=== PATIENT | female | born 1970 | race Caucasian/White ===

== ENCOUNTER 2016-09-12 08:29 | Observation (INO) | payer BC ==
[~2016-09-12] VITALS: Ht 167.6 cm; Wt 66.9 kg
[2016-09-12] VITALS (9 sets, daily range): BP systolic 103–120; BP diastolic 65–82; PULSE 67–79; TEMP 36.8–37; O2SAT 96–100; Ht 167.6 cm; Wt 66.9 kg
[2016-09-12] MEDS ORDERED: SODIUM CHLORIDE 0.9% 1000ML 1,000 ML IV STA (08:39)
--- NOTE | 2016-09-12 09:08 | DIAGNOSTIC IMAGING REPORT ---
SINGLE VIEW CHEST CLINICAL HISTORY: Groin swelling. FINDINGS: An AP, portable, upright chest radiograph is obtained. No prior studies are available for comparison at the time of dictation. The examination is mildly degraded by portable technique and patient rotation. The cardiomediastinal silhouette is unremarkable. The lungs and pleural spaces are clear. No pneumothorax is seen. The bony thorax is grossly intact. IMPRESSION: No active disease in the chest. Electronically signed by: Fred Urrutia M.D. 09/12/2016 9:07 AM Dictated Date/Time: 09/12/2016 9:06 AM
[2016-09-12 09:09] LABS: PREG INTERNAL NEGATIVE QC NEG CLEAR BACKGROUND; PREG INTERNAL POSITIVE QC POS CONTROL LINE
--- NOTE | 2016-09-12 09:12 | EMERGENCY ROOM VISIT NOTE ---
History Report prepared by Dario: Mane Pace Under the Supervision of: Dr. Yann Guthrie M.D. First contact with patient: 08:32 Chief Complaint: OVERDOSE (ACCIDENTAL) Stated Complaint: OVERDOSE History of Present Illness The patient is a 47 year old female who presents to the Emergency Room with an acute overdose that occurred at an unknown time prior to arrival. The patient was found unresponsive and not breathing at a drug treatment facility. The patient was in treatment to be taken off of Suboxone. The patient is denying drug use, including Benzodiazepines. She also denies falls or injury. The patient was reportedly given 8 mg Narcan en route. History is limited secondary to altered mental status. Source of History: patient History Limited By: AMS Onset: unknown time prior to arrival Position: other (global) Quality: other (overdose) Timing: other (acute) Associated Symptoms: + LOC Review of Systems ROS is limited secondary to altered mental status. Past Medical & Surgical Medical Problems: (1) H/O drug abuse Family History Patient reports no known family medical history. Social History Drug Use: other (history of opiate use) Current/Historical Medications Scheduled Atomoxetine Hcl (Strattera), 60 MG PO QAM Bupropion Hcl (Wellbutrin Sr), 400 MG PO QAM Clonidine Hcl (Catapres), 0.1 MG PO BID Gabapentin (Neurontin), 300 MG PO TID Gabapentin (Neurontin), 600 MG PO HS Hydroxyzine Pamoate (Vistaril), 1-2 CAP PO BID Lamotrigine (Lamictal), 400 MG PO HS Levothyroxine Sodium (Synthroid), 50 MCG PO DAILY Liothyronine Sodium (Cytomel), 5 MCG PO DAILY Melatonin (Melatonin Maximum Strengt), 1 TAB PO HS Metformin Ext Rel (Glucophage Ext Rel), 2 TAB PO DAILY Multiple Vitamin (Multivitamin), 1 TAB PO DAILY Pravastatin Sodium (Pravachol), 20 MG PO DAILY Sulfamethoxazole-Trimethoprim (Bactrim Ds 800MG/160MG), 1 TAB PO BID Trazodone Hcl (Trazodone), 50 MG PO HS Scheduled PRN Acetaminophen (Tylenol 8 Hour Arthritis), 2 TABS PO Q4 PRN for Pain Alum & Mag Hydrox-Simethicone (Maalox Max Susp), 30 ML PO TID PRN for LOS Txzooeo-Wdefnnbbogomz-Btdqecdt (Excedrin Migraine), 2 TABS PO DAILY PRN for Headache Ibuprofen (Ibu-200), 1-3 TAB PO Q4H PRN for Pain Loperamide Hcl (Imodium), 4 MG PO UD PRN for ls Magnesium Hydroxide (Milk Of Magnesia), 30 ML PO DAILY PRN for LOS Naloxone HCl (Naloxone HCl), 0.4 MG IM UD PRN for SEDATION Naproxen Sodium (Naproxen Sodium), 1 TAB PO BID PRN for Pain Promethazine Hcl (Phenergan), 25 MG PO Q6H PRN for Nausea Allergies Coded Allergies: No Known Allergies (Unverified , 09/12/16) Physical Exam Vital Signs Date Time Temp Pulse Resp B/P Pulse Ox O2 Delivery O2 Flow Rate FiO2 09/12/16 11:20 68 18 112/76 99 Room Air 09/12/16 08:50 36.9 75 18 126/29 100 Room Air 09/12/16 08:48 100 Room Air Physical Exam GENERAL: Patient is somnolent appearing in minimal distress. Difficult to arouse. HEENT: No acute trauma, normocephalic atraumatic, mucous membranes moist, no nasal congestion, no scleral icterus. NECK: No stridor, no adenopathy, no meningismus, trachea is midline. LUNGS: No dyspnea. Clear to auscultation and equal bilaterally. No wheeze, no rhonchi. HEART: Regular rate and rhythm. No murmurs, rubs, gallops appreciated. ABDOMEN: Soft, nontender, bowel sounds positive, no masses appreciated, no peritonitis. BACK: No midline tenderness, no CVA tenderness EXTREMITIES: Blue/purple discoloration with mild swelling of the right arm, there is a tourniquet in place that was released slowly. Pulses are intact, capillary refill is now normal. NEUROLOGIC: Severely somnolent / obtunded, can weakly move all extremities. SKIN: No rash, no jaundice, no diaphoresis. Medical Decision & Procedures ER Provider Diagnostic Interpretation: X ray results are stated below per my interpretation and the radiologist's interpretation. Radiology results and stated below per my review and radiologist interpretation: CT SCAN OF THE BRAIN WITHOUT IV CONTRAST CLINICAL HISTORY: Unresponsive. Change in mental status. Overdose. COMPARISON STUDY: No priors. TECHNIQUE: Unenhanced axial CT scan of the brain is performed from the vertex to the skull base. Automated dose control exposure was utilized. CT DOSE: 614.27 mGy.cm FINDINGS: Brain parenchyma: The brain parenchyma is normal in appearance. There is no hemorrhage, mass effect, or evidence of acute territorial ischemia by CT criteria. López-white matter is preserved. No extra-axial fluid collection is seen. Ventricles, sulci, cisterns: Normal in configuration. Intracranial vasculature: The visualized intracranial vasculature at the skull base is normal in appearance. Calvarium: Unremarkable. Sinuses and mastoids: The visualized paranasal sinuses are clear. The mastoid air cells are well pneumatized. Orbits: The bony orbits are grossly intact. IMPRESSION: No acute intracranial abnormality. Electronically signed by: Fred Urrutia M.D. 09/12/2016 9:36 AM Dictated Date/Time: 09/12/2016 9:34 AM SINGLE VIEW CHEST CLINICAL HISTORY: Groin swelling. FINDINGS: An AP, portable, upright chest radiograph is obtained. No prior studies are available for comparison at the time of dictation. The examination is mildly degraded by portable technique and patient rotation. The cardiomediastinal silhouette is unremarkable. The lungs and pleural spaces are clear. No pneumothorax is seen. The bony thorax is grossly intact. IMPRESSION: No active disease in the chest. Electronically signed by: Fred Urrutia M.D. 09/12/2016 9:07 AM Dictated Date/Time: 09/12/2016 9:06 AM Laboratory Results Test 09/12/16 00:00 09/12/16 09:00 Urine Color YELLOW Urine Appearance CLEAR (CLEAR) Urine pH 7.5 (4.5-7.5) Urine Specific [place] 1.009 (1.000-1.030) Urine Protein NEG (NEG) Urine Glucose (UA) NEG (NEG) Urine Ketones NEG (NEG) Urine Occult Blood NEG (NEG) Urine Nitrite NEG (NEG) Urine Bilirubin NEG (NEG) Urine Urobilinogen NEG (NEG) Urine Leukocyte Esterase NEG (NEG) Urine WBC (Auto) 0 /hpf (0-5) Urine RBC (Auto) 0-4 /hpf (0-4) Urine Hyaline Casts (Auto) 0 /lpf (0-5) Urine Epithelial Cells (Auto) 5-10 /lpf (0-5) Urine Bacteria (Auto) NEG (NEG) Prothrombin Time 10.5 SECONDS (9.0-12.0) Prothromb Time International Ratio 1.0 (0.9-1.1) Activated Partial Thromboplast Time 27.3 SECONDS (21.0-31.0) Partial Thromboplastin Ratio 1.1 Urine Test NEG (NEG) Total Bilirubin 0.4 mg/dl (0.2-1) Aspartate Amino Transf (AST/SGOT) 18 U/L (15-37) Alanine Aminotransferase (ALT/SGPT) 29 U/L (12-78) Alkaline Phosphatase 89 U/L (45-117) Total Creatine Kinase 232 U/L (26-192) Troponin I < 0.015 ng/ml (0-0.045) Total Protein 7.2 gm/dl (6.4-8.2) Albumin 4.2 gm/dl (3.4-5.0) Globulin 3.0 gm/dl (2.5-4.0) Albumin/Globulin Ratio 1.4 (0.9-2) Salicylates Level 4.0 mg/dl (2.8-20) Urine Opiates Screen NEG (NEG) Urine Methadone, Qualitative NEG (NEG) Acetaminophen Level 2 ug/ml (10-30) Urine Barbiturates NEG (NEG) Urine Phencyclidine (PCP) Level NEG (NEG) Ur Amphetamine/Methamphetamine NEG (NEG) MDMA (Ecstasy) Screen POS (NEG) Urine Benzodiazepines Screen NEG (NEG) Urine Cocaine Metabolite NEG (NEG) Urine Marijuana (THC) NEG (NEG) Ethyl Alcohol mg/dL < 3.0 mg/dl (0-3) Laboratory results as reviewed by me. Medications Administered Medications (Trade) Dose Ordered Sig/Liana Route Start Time Stop Time Status Last Admin Dose Admin Sodium Chloride 1,000 ml @ 999 mls/hr Q1H1M STAT IV 09/12/16 08:39 09/12/16 09:39 DC 09/12/16 09:18 999 MLS/HR Sodium Chloride (Nss 1000ml) 1,000 ml @ 75 mls/hr [id number] IV 09/12/16 10:29 10/12/16 10:28 09/12/16 16:33 75 MLS/HR ECG Indication: altered mental status Rate (beats per minute): 70 Rhythm: normal sinus Findings: no acute ischemic change, no ectopy ED Course 0823: The patient was evaluated in room A11b. A complete history and physical exam was performed. 0839: NSS 1000 ml @ 999 mls/hr. 0900: The patient is more awake and interactive. She denies any significant arm pain other than some soreness. She still denies overdosing on any medications, and states that she is feeling sleepy because she has not been sleeping. 0944: The patient is somnolent but awakens. 1000: The patient wakes and answers questions but falls back to sleep. She denies drug overdose. She refuses to go back to [facility]. She states that this morning she was feeling fine then she doesn't remember anything afterwards. 1002: Discussed the case with Luis Miguel Jang Hospitalist. The patient will be evaluated. Medical Decision Differential: Suicide Attempt, Mood Disorder, Poisoning, Medication OD, Narcotic OD, Tylenol OD, Salicylated OD, Prolonged QTc, Metabolic/Electrolyte imbalance, Trauma, Rhabdo, Infectious, amongst other pathologies entertained. 46 yr old female arrives for evaluation of altered mental status. Patient current resident at local drug rehab facility. Arrives essentially obtunded but once tourniquet removed from right arm she awoke and was interactive. Did start falling back to sleep shortly there-after. She adamantly denies having taken any narcotics. She denies headache, neck pain, nor other symptoms. States she does not remember what happened. She has no evidence of sepsis/ meningitis by examination. Right arm initially blue swollen with tourniquet on but with slowly removing this she had improvement in color. After a few minutes it is identical to other arm. No significant pain in arm. No evidence of vascular injury at this time with intact n/v. She is stable, breathing comfortably and in no distress. Given AMS, and fact she is getting somnolent again I do not feel it would be appropriate to discharge at this time. Hospitalist consulted for further evaluation/treatment. Consults Time Called: 1000 Consulting Physician: Luis Miguel Jang Hospitalist. Returned Call: 1002 The patient will be evaluated. Impression Primary Impression: Altered mental status Scribe Attestation The scribe's documentation has been prepared under my direction and personally reviewed by me in its entirety. I confirm that the note above accurately reflects all work, treatment, procedures, and medical decision making performed by me. Departure Information Dispostion Being Evaluated By Hospitalist Patient Instructions My [facility] Health Problem Qualifiers Primary Impression: Altered mental status Altered mental status type: transient alteration of awareness Qualified Codes : R40.4 - Transient alteration of awareness
[2016-09-12 09:27] LABS: BASO % 0.4 %; BASO ABS # 0.03 K/uL (0-0.2); COMPLETE YES; HEMATOCRIT 38.4 % (37-47); IG% 0.4 %; LYMPH % 6.8 %; LYMPH ABS # 0.56 K/uL (1.2-3.4); MEAN CELL VOLUME 88.5 fL (80-100); MEAN CORPUSCULAR HGB CONC 33.9 g/dl (32-36); MONO % 4.9 %; NEUT % 86.5 %; PLATELET COUNT 260 K/uL (130-400); RED BLOOD COUNT 4.34 M/uL (4.2-5.4); WHITE BLOOD COUNT 8.18 K/uL (4.8-10.8)
[2016-09-12 09:34] LABS: BENZODIAZEPINE, URINE NEG (NEG); COCAINE,URINE NEG (NEG); PHENCYCLIDINE, URINE NEG (NEG)
--- NOTE | 2016-09-12 09:37 | DIAGNOSTIC IMAGING REPORT ---
CT SCAN OF THE BRAIN WITHOUT IV CONTRAST CLINICAL HISTORY: Unresponsive. Change in mental status. Overdose. COMPARISON STUDY: No priors. TECHNIQUE: Unenhanced axial CT scan of the brain is performed from the vertex to the skull base. Automated dose control exposure was utilized. CT DOSE: 614.27 mGy.cm FINDINGS: Brain parenchyma: The brain parenchyma is normal in appearance. There is no hemorrhage, mass effect, or evidence of acute territorial ischemia by CT criteria. López-white matter is preserved. No extra-axial fluid collection is seen. Ventricles, sulci, cisterns: Normal in configuration. Intracranial vasculature: The visualized intracranial vasculature at the skull base is normal in appearance. Calvarium: Unremarkable. Sinuses and mastoids: The visualized paranasal sinuses are clear. The mastoid air cells are well pneumatized. Orbits: The bony orbits are grossly intact. IMPRESSION: No acute intracranial abnormality. Electronically signed by: Fred Urrutia M.D. 09/12/2016 9:36 AM Dictated Date/Time: 09/12/2016 9:34 AM
[2016-09-12 09:38] LABS: ALT/SGPT 29 U/L (12-78); AST/SGOT 18 U/L (15-37); BLOOD UREA NITROGEN 4 mg/dl (7-18); BUN/CREATININE RATIO 5.6 (10-20); CALCIUM 8.8 mg/dl (8.5-10.1); CARBON DIOXIDE 28 mmol/L (21-32); CHLORIDE 106 mmol/L (98-107); CREATININE 0.71 mg/dl (0.60-1.20); GLUCOSE 99 mg/dl (70-99); POTASSIUM 3.7 mmol/L (3.5-5.1); SODIUM 140 mmol/L (136-145)
[2016-09-12 09:49] LABS: ALB/GLOB RATIO 1.4 (0.9-2); ALKALINE PHOSPHATASE 89 U/L (45-117); THYROID STIMULATING HORMONE 0.725 uIu/ml (0.300-4.500)
--- NOTE | 2016-09-12 10:18 | History and Physical ---
History & Physical Date & Time of Service: September 12, 2016 at 10:18 Chief Complaint: Overdose Primary Care Physician: No Doctor, Assigned History of Present Illness Source: patient Patient is a 46 Yr old female with PMH of DM II, Hypothyroidism, HLP, anxiety, depression and other problems presents from [facility] for evaluation of altered mental status. As per medical staff patient was thought to have acute drug overdose that occurred at unknown period. Patient was apparently found to be unresponsive and was not breathing at the drug treatment facility and she received Narcan en route to the ED. Patient reports she voluntarily got admitted at [facility] for Suboxone and Vicodin detox. She denies taking any excess prescription medications or drug use. She reports she is currently off Suboxone. CT head, CXR showed no acute process. Currently she is AAOX3, hemodynamically stable and states she experienced an episode of dizziness which is describes as room spinning associated with nausea which currently resolved. Currently reports being very tired and has generalized weakness and is very hungry. Also reports 2 day history of loose watery non bloody diarrhea, chills , nausea and pressure like sensation on micturition which is believes is secondary to UTI and was started on Bactrim yesterday at [facility]. Denies any history of chest pain, SOB, cough, abd pain, change in vision, fever, hematuria but states having a mild headache. Offers no other relevant history Past Medical/Surgical History Past Medical History: DM II, Hypothyroidism, HLP, anxiety, depression Past Surgical History: , Tonsillectomy Family History Patient reports no known family medical history. Father and Mother: DM II, HTN, heart disease Social History Smoking Status: Current Some Day Smoker Alcohol Use: none Drug Use: other (history of opiate use) Allergies Coded Allergies: No Known Allergies (Unverified , 09/12/16) Home Medications Scheduled Atomoxetine Hcl (Strattera), 60 MG PO QAM Bupropion Hcl (Wellbutrin Sr), 400 MG PO QAM Clonidine Hcl (Catapres), 0.1 MG PO BID Gabapentin (Neurontin), 300 MG PO TID Gabapentin (Neurontin), 600 MG PO HS Hydroxyzine Pamoate (Vistaril), 1-2 CAP PO BID Lamotrigine (Lamictal), 400 MG PO HS Levothyroxine Sodium (Synthroid), 50 MCG PO DAILY Liothyronine Sodium (Cytomel), 5 MCG PO DAILY Melatonin (Melatonin Maximum Strengt), 1 TAB PO HS Metformin Ext Rel (Glucophage Ext Rel), 2 TAB PO DAILY Multiple Vitamin (Multivitamin), 1 TAB PO DAILY Pravastatin Sodium (Pravachol), 20 MG PO DAILY Sulfamethoxazole-Trimethoprim (Bactrim Ds 800MG/160MG), 1 TAB PO BID Trazodone Hcl (Trazodone), 50 MG PO HS Scheduled PRN Acetaminophen (Tylenol 8 Hour Arthritis), 2 TABS PO Q4 PRN for Pain Alum & Mag Hydrox-Simethicone (Maalox Max Susp), 30 ML PO TID PRN for LOS Vvrobha-Lunnerbasdjuv-Shjkihoc (Excedrin Migraine), 2 TABS PO DAILY PRN for Headache Ibuprofen (Ibu-200), 1-3 TAB PO Q4H PRN for Pain Loperamide Hcl (Imodium), 4 MG PO UD PRN for ls Magnesium Hydroxide (Milk Of Magnesia), 30 ML PO DAILY PRN for LOS Naloxone HCl (Naloxone HCl), 0.4 MG IM UD PRN for SEDATION Naproxen Sodium (Naproxen Sodium), 1 TAB PO BID PRN for Pain Promethazine Hcl (Phenergan), 25 MG PO Q6H PRN for Nausea Review of Systems See HPI for pertinent positives & negatives. A total of 10 systems reviewed and were otherwise negative. Physical Exam Vital Signs Date Time Temp Pulse Resp B/P Pulse Ox O2 Delivery O2 Flow Rate FiO2 09/12/16 08:50 36.9 75 18 126/29 100 Room Air 09/12/16 08:48 100 Room Air General Appearance: WD/WN, no apparent distress Head: normocephalic, atraumatic Eyes: normal inspection, PERRL, EOMI, sclerae normal ENT: normal ENT inspection, hearing grossly normal Neck: supple, trachea midline Respiratory/Chest: chest non-tender, lungs clear, normal breath sounds, no respiratory distress, no accessory muscle use Cardiovascular: regular rate, rhythm, no edema, no murmur Abdomen/GI: normal bowel sounds, non tender, soft, + pertinent finding (Bowel sounds present ) Back: normal inspection Extremities/Musculoskelatal: normal inspection, no pedal edema Neurologic/Psych: seconds inspector II-XII nml as tested, no motor/sensory deficits, alert, oriented x 3, + pertinent finding (Anxious) Skin: normal color, warm/dry Diagnostics Laboratory Results Results Past 24 Hours Test 09/12/16 09:00 Range/Units White Blood Count 8.18 4.8-10.8 K/uL Red Blood Count 4.34 4.2-5.4 M/uL Hemoglobin 13.0 12.0-16.0 g/dL Hematocrit 38.4 37-47 % Mean Corpuscular Volume 88.5 80-100 fL Mean Corpuscular Hemoglobin 30.0 25-34 pg Mean Corpuscular Hemoglobin Concent 33.9 32-36 g/dl Platelet Count 260 130-400 K/uL Neutrophils (%) (Auto) 86.5 % Lymphocytes (%) (Auto) 6.8 % Monocytes (%) (Auto) 4.9 % Eosinophils (%) (Auto) 1.0 % Basophils (%) (Auto) 0.4 % Neutrophils # (Auto) 7.08 1.4-6.5 K/uL Lymphocytes # (Auto) 0.56 1.2-3.4 K/uL Monocytes # (Auto) 0.40 0.11-0.59 K/uL Eosinophils # (Auto) 0.08 0-0.5 K/uL Basophils # (Auto) 0.03 0-0.2 K/uL Immature Granulocyte % (Auto) 0.4 % Immature Granulocyte # (Auto) 0.03 0.00-0.02 K/uL Urine Test NEG NEG Sodium Level 140 136-145 mmol/L Potassium Level 3.7 3.5-5.1 mmol/L Chloride Level 106 98-107 mmol/L Carbon Dioxide Level 28 21-32 mmol/L Anion Gap 6.0 3-11 mmol/L Blood Urea Nitrogen 4 7-18 mg/dl Creatinine 0.71 0.60-1.20 mg/dl Est Creatinine Clear Calc Drug Dose 90.7 ml/min Estimated GFR () 116.7 Estimated GFR (Non- 100.7 BUN/Creatinine Ratio 5.6 10-20 Random Glucose 99 70-99 mg/dl Calcium Level 8.8 8.5-10.1 mg/dl Total Bilirubin 0.4 0.2-1 mg/dl Aspartate Amino Transf (AST/SGOT) 18 15-37 U/L Alanine Aminotransferase (ALT/SGPT) 29 12-78 U/L Alkaline Phosphatase 89 45-117 U/L Total Creatine Kinase 232 26-192 U/L Troponin I < 0.015 0-0.045 ng/ml Total Protein 7.2 6.4-8.2 gm/dl Albumin 4.2 3.4-5.0 gm/dl Globulin 3.0 2.5-4.0 gm/dl Albumin/Globulin Ratio 1.4 0.9-2 Thyroid Stimulating Hormone (TSH) 0.725 0.300-4.500 uIu/ml Salicylates Level 4.0 2.8-20 mg/dl Urine Opiates Screen NEG NEG Urine Methadone, Qualitative NEG NEG Acetaminophen Level 2 10-30 ug/ml Urine Barbiturates NEG NEG Urine Phencyclidine (PCP) Level NEG NEG Ur Amphetamine/Methamphetamine NEG NEG MDMA (Ecstasy) Screen POS NEG Urine Benzodiazepines Screen NEG NEG Urine Cocaine Metabolite NEG NEG Urine Marijuana (THC) NEG NEG Ethyl Alcohol mg/dL < 3.0 0-3 mg/dl Diagnostic Radiology CXR: No active disease in the chest. CT head: No acute intracranial abnormality. Carotid USD: 1. There is no sonographic evidence of hemodynamically significant stenosis in the right or left carotid arterial system. 2. Antegrade flow is shown in the vertebral arteries. EKG EKG: NSR, Rate 70, QTC:462 Impression Assessment and Plan Altered Mental Status: Unclear etiology DD: ?drug overdose or Withdrawal/Polypharmacy/Infection CT head/Carotid doppler/CXR: No acute process No focal deficits on exam Drug screen:Negative Neuro Checks Will consider MRI brain and further work up if necessary Hold sedative meds Check EEG/ECHO Diarrhea: Check stool studies IV Fluids ? UTI: Treated with Bactrim [address] [facility] Will start IV Ceftriaxone empirically Follow blood/Urine cultures DM II: hold oral diabetic meds Check A1c ISS, Accu checks, Diabetic diet H/O drug abuse: Was on Suboxone which was discontinued at [facility] Patient doesn't want to be discharged back to [facility] Drug screen is negative business services analyst consulted for discharge planning Hypothyroidism: TSH:0.7 Repeat TSH, Free T4 Continue Synthroid, Cytomel HLP: Continue Pravastatin Anxiety/Depression: Hold all home meds for now Consult Psychiatry Plan to resume home meds when appropriate Tobacco Use: Nicotine patch Dental Specialist to quit smoking DVT px: Lovenox SQ Disposition: To be determined business services analyst consulted
[2016-09-12] MEDS ORDERED: ONDANSETRON INJ 2 MG/ML 2 ML VIAL IV PRN (10:30)
[2016-09-12] MEDS ORDERED: ACETAMINOPHEN 325 MG TAB PO PRN (10:30)
[2016-09-12] MEDS ORDERED: PHARMACY GLYCEMIC MGMT CONSULT PRN (11:16)
[2016-09-12] MEDS ORDERED: MULTTAB58 PO (11:18)
[2016-09-12] MEDS ORDERED: GABA-113 PO (11:18)
[2016-09-12] MEDS ORDERED: STR40 PO (11:18)
[2016-09-12] MEDS ORDERED: TRAZ50TA35 PO (11:18)
[2016-09-12] MEDS ORDERED: NRN/600 PO (11:18)
[2016-09-12] MEDS ORDERED: LAMO200T PO (11:18)
[2016-09-12] MEDS ORDERED: LIOT5TAB PO (11:18)
[2016-09-12] MEDS ORDERED: ASPI-390 PO (11:18)
[2016-09-12] MEDS ORDERED: NAPR-1007 PO (11:18)
[2016-09-12] MEDS ORDERED: BUPR200T2 PO (11:18)
[2016-09-12] MEDS ORDERED: PRAV20TA2 PO (11:18)
[2016-09-12] MEDS ORDERED: METFTAB PO (11:18)
[2016-09-12] MEDS ORDERED: SULF800T23 PO (11:19)
[2016-09-12] MEDS ORDERED: MELATAB2 PO (11:19)
[2016-09-12] MEDS ORDERED: HYDR50CA2 PO (11:19)
[2016-09-12] MEDS ORDERED: PROM25TA9 PO (11:19)
[2016-09-12] MEDS ORDERED: IBUP200T80 PO (11:19)
[2016-09-12] MEDS ORDERED: IMD2X PO (11:19)
[2016-09-12] MEDS ORDERED: ACET650T97 PO (11:19)
[2016-09-12] MEDS ORDERED: MOML PO (11:19)
[2016-09-12] MEDS ORDERED: LEVO50TA PO (11:19)
[2016-09-12] MEDS ORDERED: CTP/1 PO (11:19)
[2016-09-12] MEDS ORDERED: NLXI4X IM (11:19)
[2016-09-12] MEDS ORDERED: ALUMSUS2 PO (11:19)
[2016-09-12] MEDS ORDERED: ATOM60CA PO (11:27)
[2016-09-12] MEDS ORDERED: GLUCOSE 40% GEL 15 GM TUBE PO PRN (11:30)
[2016-09-12] MEDS ORDERED: GLUCAGON FOR INJ 1 MG VIAL SQ PRN (11:30)
[2016-09-12] MEDS ORDERED: GLUCOSE 10 TABS/TUBE PO PRN (11:30)
[2016-09-12] MEDS ORDERED: DEXTROSE 50% 50 ML SYR IV PRN (11:30)
[2016-09-12] MEDS ORDERED: ALUMINUM/MAGNESIUM/SIMETH (MAALOX MAX) 30 ML UDC PO PRN (11:30)
[2016-09-12 12:02] LABS: PARTIAL THROMBOPLASTIN RATIO 1.1; PROTHROMBIN TIME (PATIENT) 10.5 SECONDS (9.0-12.0)
[2016-09-12] MEDS ORDERED: NICOTINE 21 MG/24 HR TDSY ONE (12:42)
--- NOTE | 2016-09-12 13:57 | DIAGNOSTIC IMAGING REPORT ---
ULTRASOUND OF THE CAROTID ARTERIES CLINICAL HISTORY: Syncope. Overdose. COMPARISON STUDY: No priors. TECHNIQUE: Real-time, grayscale, and color Doppler sonography of the carotid arteries is performed. Images are reviewed in the transverse and longitudinal planes. FINDINGS: Blood pressures were not assessed due to limb restrictions. The carotid arteries are patent bilaterally and demonstrate antegrade flow. There is no significant atherosclerotic plaque identified. Normal doppler arterial waveforms are seen throughout. Velocity measurements are listed below. Common carotid peak systolic velocity (cm/sec): RIGHT: 68 LEFT: 94 ICA proximal peak systolic velocity (cm/sec): RIGHT: 55 LEFT: 110 ICA mid peak systolic velocity (cm/sec): RIGHT: 82 LEFT: 105 ICA distal peak systolic velocity (cm/sec): RIGHT: 84 LEFT: 110 ICA/CC peak systolic ratio: RIGHT: 1.2 LEFT: 1.2 Antegrade flow was shown in the vertebral arteries. The external carotid arteries are patent. IMPRESSION: 1. There is no sonographic evidence of hemodynamically significant stenosis in the right or left carotid arterial system. 2. Antegrade flow is shown in the vertebral arteries. Electronically signed by: Fred Urrutia M.D. 09/12/2016 1:56 PM Dictated Date/Time: 09/12/2016 1:54 PM
[2016-09-12] MEDS ORDERED: IV FLUIDS COMPLETED PRN (14:00)
--- NOTE | 2016-09-12 14:03 | Pharmacy Progress Note ---
Glycemic Control Intl Consult Date of Service September 12, 2016. Scope Glycemic Pharmacist consulted by Dr Prater on 09/12/16 for glycemic control and to write orders per [facility] inpatient glycemic control protocol Objective Weight (Kilograms): 67.000 Accuchecks BSG (last 24hrs): Test 09/12/16 09:00 Random Glucose 99 mg/dl (70-99) Recent Pertinent Medications Outpatient Anti-diabetic Regimen: * Metformin XR 1,000mg PO daily The patient is currently receiving: * Basal insulin: Lantus -- units every -- hours * Correctional Insulin: Novolog Correction per scale ACHS Goal Range: Low 120 mg/dL - High 160 mg/dL Correction Factor: 65 mg/dL/unit * Prandial insulin: Per carb ratio of 1 unit per 22 grams CHO consumed * Oral Agents: On hold for admission Risk Factors for Insulin Resistance: * Diet Assessment & Plan ASSESSMENT: * 46yo T2DM female with unknown degree of outpatient control. No recent A1c listed * A1c pending for tomorrow with AM labs * Pt is maintained on oral antidiabetic agent as an outpatient {metformin} * Oral agents are not recommended for inpatient use d/t drug interactions, changing PO intake, and difficulty titrating for acute hyper/hypoglycemia. ADA recommends re-initiating outpatient oral agents 1-2 days prior to discharge if/ when appropriate if they were held on admission. * Will hold metformin admission and utilize SQ basal bolus insulin regimen which is the recommended regimen for inpatient glycemic control. * Will initiate weight based insulin dosing for insulin bree patient and titrate based on BSG trends. * Start basal insulin only if BSG > 180mg/dl * ADA & AACE recommend a goal blood sugar range 140-180 mg/dl for the majority of critically ill & non-critically ill patients. However, more stringent targets may be selected in individual cases. Will utilize more stringent goal of 110-140mg/dl based on patient age & comorbidities. PLAN FOR INPATIENT GLYCEMIC CONTROL: * Hold outpatient oral diabetes medications * Basal insulin * Most likely not needed at this time based on random glucose of 99mg/dl & pt only on one oral agent as an outpatient * Will start for persistent hyperglycemia while metformin on hold (BSG > 180) * Bolus insulin * NovoLog per scale ACHS or Q6hrs while NPO * Goal Range: Low 110 mg/dL - High 140 mg/dL * Correction Factor: 35 mg/dL/unit * Nutritional / Prandial insulin per carb ratio of 1 unit per 12 grams CHO consumed * D/W provider, pharmacy to sign off of glycemic consult if adequate glycemic control with above orders x 24hrs * Please note that the plan above was derived based on current level of insulin resistance and hospital stress. These recommendations are appropriate for inpatient admission only. Plan of care upon discharge will need to be reassessed to avoid potential outpatient hypo/hyperglycemia. Thank you.
[2016-09-12] MEDS ORDERED: CEFTRIAXONE SOD INJ 1 GM in DEXTROSE 5% ADD-VANTAGE 50ML 50 ML IV SCH (16:00)
[2016-09-12] MEDS: INSULIN ASPART 100 UNITS/ML 3 ML PEN SC SCH ×2 (16:15→21:00)
[2016-09-12] MEDS: SODIUM CHLORIDE 0.9% 1000ML 1,000 ML IV SCH ×2 (16:33→23:49)
[2016-09-12] MEDS ORDERED: ENOXAPARIN 40 MG/0.4 ML SYR SC SCH (18:00)
[2016-09-12 18:57] LABS: URINE APPEARANCE CLEAR (CLEAR); URINE BILIRUBIN NEG (NEG); URINE COLOR YELLOW; URINE NITRITE NEG (NEG); URINE PH 7.5 (4.5-7.5); URINE SPECIFIC GRAVITY 1.009 (1.000-1.030); UROBILINOGEN NEG (NEG); ZZUR CULT IF INDIC CLEAN CATCH NO
[2016-09-12 19:00] LABS: MANUAL MICROSCOPIC REQUIRED? NO; REVIEW REQ? NO
[2016-09-12] MEDS ORDERED: TRAZODONE HCL 50 MG TAB PO SCH (21:30)
[2016-09-13 00:10] VITALS: O2SAT 100
[2016-09-13] MEDS ORDERED: NURSING VERBAL MED ORDER ONE (01:15)
[2016-09-13] MEDS ORDERED: hydrOXYzine HCL 25 MG TAB PO STA (01:19)
[2016-09-13] MEDS: hydrOXYzine HCL 25 MG TAB PO PRN ×2 (02:41→10:16)
[2016-09-13 04:16] VITALS: O2SAT 100
[2016-09-13] MEDS ORDERED: LEVOTHYROXINE 50 MCG TAB PO SCH (06:00)
[2016-09-13 06:03] LABS: BASO % 0.2 %; BASO ABS # 0.01 K/uL (0-0.2); COMPLETE YES; EOS % 0.8 %; HEMATOCRIT 35.4 % (37-47); IG% 0.2 %; LYMPH % 9.9 %; LYMPH ABS # 0.65 K/uL (1.2-3.4); MEAN CELL VOLUME 89.2 fL (80-100); MEAN CORPUSCULAR HEMOGLOBIN 30.5 pg (25-34); MEAN CORPUSCULAR HGB CONC 34.2 g/dl (32-36); MEAN PLATELET VOLUME 9.8 fL (7.4-10.4); MONO % 6.6 %; NEUT % 82.3 %; PLATELET COUNT 251 K/uL (130-400); RED BLOOD COUNT 3.97 M/uL (4.2-5.4); WHITE BLOOD COUNT 6.54 K/uL (4.8-10.8)
[2016-09-13 06:48] LABS: BUN/CREATININE RATIO 7.6 (10-20); CREATININE 0.65 mg/dl (0.60-1.20); POTASSIUM 3.1 mmol/L (3.5-5.1)
[2016-09-13 06:57] LABS: THYROID STIMULATING HORMONE 1.06 uIu/ml (0.300-4.500)
[2016-09-13] MEDS: INSULIN ASPART 100 UNITS/ML 3 ML PEN SC SCH (07:00)
[2016-09-13 07:43] VITALS: BP 104/68; PULSE 74; TEMP 36.9; O2SAT 100
[2016-09-13 08:00] VITALS: O2SAT 99
[2016-09-13] MEDS ORDERED: PRAVASTATIN SOD 20 MG TAB PO SCH (09:00)
[2016-09-13] MEDS ORDERED: LIOTHYRONINE SODIUM 5 MCG TAB PO SCH (09:00)
[2016-09-13] MEDS ORDERED: NICOTINE 21 MG/24 HR TDSY TD SCH (09:00)
--- NOTE | 2016-09-13 09:17 | Progress Note ---
Internal Med Progress Note Date of Service: September 13, 2016. Provider Documentation: SUBJECTIVE: Seen and examined at bedside. States feeling anxious and wanted to be discharged. Denies any chest pain, SOB, dizziness, headache. Offers no complaints. "My is on his way to take me home". OBJECTIVE: Vital Signs-as noted below General Appearance: WD/WN, no apparent distress Head: normocephalic, atraumatic Eyes: normal inspection, PERRL, EOMI, sclerae normal ENT: normal ENT inspection, hearing grossly normal Neck: supple, trachea midline Respiratory/Chest: chest non-tender, lungs clear, normal breath sounds, no respiratory distress, no accessory muscle use Cardiovascular: regular rate, rhythm, no edema, no murmur Abdomen/GI: normal bowel sounds, non tender, soft, + Bowel sounds Back: normal inspection Extremities/Musculoskelatal: normal inspection, no pedal edema Neurologic/Psych: shank sorter II-XII nml as tested, no motor/sensory deficits, alert, oriented x 3 Skin: normal color, warm/dry Lab data as noted below. ASSESSMENT & PLAN: Altered Mental Status: Unclear etiology DD: ?drug overdose or Withdrawal/Polypharmacy/Infection CT head/Carotid doppler/CXR: No acute process No focal deficits on exam Drug screen:Negative Hold sedative meds EEG/ECHO: report pending HYPOKALEMIA: Will replace and monitor Check Mag levels Diarrhea: Check stool studies IV Fluids ? UTI: Treated with Bactrim for 1 day at [facility] Continue Ceftriaxone Follow blood/Urine cultures DM II: hold oral diabetic meds Check A1c:pending ISS, Accu checks, Diabetic diet H/O drug abuse: Was on Suboxone which was discontinued at [facility] Patient doesn't want to be discharged back to [facility] Drug screen is negative media services specialist consulted for discharge planning Vistaril PRN Await for Psych input Hypothyroidism: Repeat TSH, Free T4:wnl Continue Synthroid, Cytomel HLP: Continue Pravastatin Anxiety/Depression: Hold all home meds for now Consulted Psychiatry Plan to resume home meds when appropriate Tobacco Use: Nicotine patch [employer] to quit smoking DVT px: Lovenox SQ Disposition: To be determined media services specialist consulted Patient wants to sign out AMA despite explaining the consequences and risks. Vital Signs: Date Time Temp Pulse Resp B/P Pulse Ox O2 Delivery O2 Flow Rate FiO2 09/13/16 08:00 99 Room Air 09/13/16 07:43 36.9 74 20 104/68 100 Room Air 09/13/16 04:16 100 Room Air 09/13/16 00:10 100 Room Air 09/12/16 23:11 36.9 69 18 120/82 100 Room Air 09/12/16 20:00 100 Room Air 09/12/16 19:55 37.0 67 18 103/65 100 Room Air 09/12/16 17:18 100 Room Air 09/12/16 16:12 36.8 78 20 113/75 100 Room Air 09/12/16 15:45 76 96 09/12/16 15:43 100 Room Air 09/12/16 15:27 36.9 79 16 110/74 09/12/16 14:15 100 Room Air 09/12/16 14:15 36.9 79 18 110/74 100 Room Air 09/12/16 14:15 100 Room Air 09/12/16 11:20 68 18 112/76 99 Room Air Lab Results: Results Past 24 Hours Test 09/12/16 17:38 09/12/16 20:43 09/13/16 05:44 09/13/16 06:17 Range/Units Bedside Glucose 116 91 134 70-90 mg/dl White Blood Count 6.54 4.8-10.8 K/uL Red Blood Count 3.97 4.2-5.4 M/uL Hemoglobin 12.1 12.0-16.0 g/dL Hematocrit 35.4 37-47 % Mean Corpuscular Volume 89.2 80-100 fL Mean Corpuscular Hemoglobin 30.5 25-34 pg Mean Corpuscular Hemoglobin Concent 34.2 32-36 g/dl Platelet Count 251 130-400 K/uL Mean Platelet Volume 9.8 7.4-10.4 fL Neutrophils (%) (Auto) 82.3 % Lymphocytes (%) (Auto) 9.9 % Monocytes (%) (Auto) 6.6 % Eosinophils (%) (Auto) 0.8 % Basophils (%) (Auto) 0.2 % Neutrophils # (Auto) 5.39 1.4-6.5 K/uL Lymphocytes # (Auto) 0.65 1.2-3.4 K/uL Monocytes # (Auto) 0.43 0.11-0.59 K/uL Eosinophils # (Auto) 0.05 0-0.5 K/uL Basophils # (Auto) 0.01 0-0.2 K/uL RDW Standard Deviation 41.3 36.4-46.3 fL RDW Coefficient of Variation 12.7 11.5-14.5 % Immature Granulocyte % (Auto) 0.2 % Immature Granulocyte # (Auto) 0.01 0.00-0.02 K/uL Sodium Level 146 136-145 mmol/L Potassium Level 3.1 3.5-5.1 mmol/L Chloride Level 109 98-107 mmol/L Carbon Dioxide Level 27 21-32 mmol/L Anion Gap 10.0 3-11 mmol/L Blood Urea Nitrogen 5 7-18 mg/dl Creatinine 0.65 0.60-1.20 mg/dl Est Creatinine Clear Calc Drug Dose 99.0 ml/min Estimated GFR () 121.7 Estimated GFR (Non- 105.0 BUN/Creatinine Ratio 7.6 10-20 Random Glucose 143 70-99 mg/dl Calcium Level 9.0 8.5-10.1 mg/dl Thyroid Stimulating Hormone (TSH) 1.060 0.300-4.500 uIu/ml Free Thyroxine 1.09 0.80-1.60 ng/dl Microbiology Results 09/12/16 Blood Culture, Received Pending 09/12/16 Blood Culture, Received Pending
[2016-09-13] MEDS ORDERED: POTASSIUM CHLORIDE 10 MEQ TABCR PO ONE (09:30)
--- NOTE | 2016-09-13 09:45 | ECHOCARDIOGRAM REPORT ---
*NOTICE TO RECEIVING [employer] This information is strictly Confidential and protected under [place] law. [place] law prohibits you from making any further disclosure of this information unless further disclosure is expressly permitted by the written consent of the person to whom it pertains or is authorized by law. A general authorization for the release of medical or other information is not sufficient for this purpose. Hospital accepts no responsibility if the information is made available to any other person, INCLUDING THE PATIENT. Interpretation Summary * Name: DEBBIE GAN Study Date: 09/12/2016 02:55 PM BP: 126/29 mmHg * Patient Location: [facility] HR: 75 * : 1970 (M/d/yyyy) Gender: Female Height: 66 in * Age: 46 yrs Ethnicity: CA Weight: 147 lb * Ordering Physician: Richi Prater * Performed By: Yanna Nguyen * * Reason For Study: SYNCOPE * BSA: 1.8 m2 * -- Conclusions -- * The left ventricle is normal in size. * There is mild concentric left ventricular hypertrophy. * The left ventricular wall motion is normal. * Left ventricular systolic function is normal. * Ejection Fraction = >70 %. * There is no significant valvular disease * There is no pericardial effusion. * Right ventricular systolic pressure is normal. Procedure Details * A complete two-dimensional transthoracic echocardiogram was performed (2D, M-mode, Doppler and color flow Doppler). Left Ventricle * The left ventricle is normal in size. * There is mild concentric left ventricular hypertrophy. * Ejection Fraction = >70 %. * Left ventricular systolic function is normal. * The left ventricular wall motion is normal. Right Ventricle * The right ventricle is normal in size and function. Atria * The left atrial size is normal. * Right atrial size is normal. * No ASD detected; PFO is not assessed. Mitral Valve * The mitral valve anatomy is normal. * There is no mitral valve stenosis. * There is trace mitral regurgitation. Tricuspid Valve * The tricuspid valve anatomy is normal. * There is no tricuspid stenosis. * There is trace tricuspid regurgitation. * Right ventricular systolic pressure is normal. Aortic Valve * The aortic valve is trileaflet. * No hemodynamically significant valvular aortic stenosis. * No aortic regurgitation is present. Pulmonic Valve * The pulmonic valve is not well visualized. Great Vessels * The aortic root is normal size. Pericardium/Pleural * There is no pericardial effusion. Great Vessels * Normal inferior vena cava diameter and respiratory variation suggests normal central venous pressure. Left Ventricular Diastolic Function * Grade I diastolic dysfunction, (abnormal relaxation pattern). MMode 2D Measurements and Calculations IVSd 1.2 cm IVSs 2.2 cm LVIDd 4.5 cm LVIDs 2.3 cm LVPWd 1.1 cm LVPWs 1.8 cm IVS/LVPW 1.1 FS 48.1 % EDV(Teich) 91.1 ml ESV(Teich) 18.5 ml EF(Teich) 79.7 % EDV(cubed) 89.4 ml ESV(cubed) 12.5 ml EF(cubed) 86.0 % % IVS thick 78.6 % % LVPW thick 62.0 % LV mass(C)d 187.6 grams LV mass(C)dI 106.9 grams/m\S\2 LV mass(C)s 197.6 grams LV mass(C)sI 112.6 grams/m\S\2 SV(Teich) 72.6 ml SI(Teich) 41.4 ml/m\S\2 SV(cubed) 77.0 ml SI(cubed) 43.9 ml/m\S\2 ACS 1.1 cm LA dimension 3.3 cm asc Aorta Diam 3.4 cm LVOT diam 2.1 cm LVOT area 3.4 cm\S\2 LVAd ap4 29.8 cm\S\2 LVLd ap4 8.1 cm EDV(MOD-sp4) 88.9 ml EDV(sp4-el) 92.9 ml LVAs ap4 12.6 cm\S\2 LVLs ap4 6.0 cm ESV(MOD-sp4) 22.7 ml ESV(sp4-el) 22.5 ml EF(MOD-sp4) 74.5 % EF(sp4-el) 75.7 % LVAd ap2 28.1 cm\S\2 LVLd ap2 7.5 cm EDV(MOD-sp2) 87.1 ml EDV(sp2-el) 89.1 ml LVAs ap2 12.0 cm\S\2 LVLs ap2 5.5 cm ESV(MOD-sp2) 22.2 ml ESV(sp2-el) 22.2 ml EF(MOD-sp2) 74.5 % EF(sp2-el) 75.1 % LVLd %diff -8.26 % EDV(MOD-bp) 91.6 ml LVLs %diff -8.76 % ESV(MOD-bp) 23.4 ml EF(MOD-bp) 74.5 % SV(MOD-sp4) 66.2 ml SI(MOD-sp4) 37.7 ml/m\S\2 SV(MOD-sp2) 64.9 ml SI(MOD-sp2) 37.0 ml/m\S\2 SV(MOD-bp) 68.2 ml SI(MOD-bp) 38.9 ml/m\S\2 SV(sp4-el) 70.4 ml SI(sp4-el) 40.1 ml/m\S\2 SV(sp2-el) 67.0 ml SI(sp2-el) 38.2 ml/m\S\2 Doppler Measurements and Calculations MV E max jodi 62.3 cm/sec MV A max jodi 66.1 cm/sec MV E/A 0.94 MV dec time 0.17 sec Ao V2 max 150.7 cm/sec Ao max PG 9.1 mmHg Ao max PG (full) 1.2 mmHg DEMOND(V,A) 3.1 cm\S\2 DEMOND(V,D) 3.1 cm\S\2 LV V1 max PG 7.9 mmHg LV V1 max 140.2 cm/sec PA V2 max 92.7 cm/sec PA max PG 3.4 mmHg
--- NOTE | 2016-09-13 10:50 | Psychiatric Consultation ---
Psychiatric Consultation Date of Service: September 13, 2016. Pt setting up to leave AMA as saw pt, was waiting for her to come and he arrived in midst of interviewing her. She was admitted to [facility] following being found unresponsive at [facility] for coming off Suboxone per pt. She was admitted on the 31 of August and has weaned fully off the Suboxone as of September 07 per pt, with last dose on . She was taken off Effexor Xr and her adderall medications and was continued on wellbutrin sr 400mg am, lamictal 400mg hs (in past was 100mg and 400mghs) and trazodone 50mg hs, and vistaril 25- 50mg prn anxiety up to twice a day taken a few times a month at most per pt. Pt was tried on Strattera at [facility] but had GI s/e and it was stopped. Pt was placed on neurontin 300mg tid plus 600mg hs at [facility]. Pt denied taking any substances or overdose of any meds or other substances. She denied craving for alcohol or opioids or other substances. She denied noticing issues with stopping Adderall. She denied worsening of her mood or anxiety in past week. She has had worsening of her sleep due with decrease sleep occurring the past number of nights. Pt reports only about 3 hours of sleep last night here at [facility]. She is seeking to leave and aware will be AMA discharge. She feels the need to go back to [place] and be with her family and aims for outpt f/u with [facility]. She feels she does not need more time at [facility] and plans ot go there to get her stuff and to review her paperwork. She reported h/o alcohol use concerns that have not been present in past 4-5 years as on suboxone and a past h/o addiction with opioid pain meds that she reported was addressed with a rehab about 7 years ago and that the suboxone was given ot her when still drinking and having urges to use opioids at that time per pt. She feels she is appropriate to leave the hospital at this time and able to express and weigh the risks of doing so. She plans to address her psych medications with her outpt providers and is comfortable with doing so. pt denied h/o bipolar d/o she denied urges to use alcohol or opioid or other substance. She denied si or hi, depression and psychotic features. on MMSE psychomotor agitation, good grooming, wearing own clothes, mood fine affect mildly anxious, linear goal directed, concentration impaired some at gross level and reverse o,r on spelling world backwards and 1 out 5 correct on serial 7's. denied si or hi, cooperative and pleasant in engagement. no paranoid or delusional material, not reacting to internal stimuli and denied AH or VH. A: Recent AMS, opioid use disorder newly weaned off suboxone, alcohol use disorder reported to be in full remission. Depression D/o NOS and anxiety D/o NOS reproted h/o ADHD P; pt self discharging AMA at this time and will follow up as outpt, does not plan to resume care at [facility], no need for inpt psych care at this time.
--- NOTE | 2016-09-13 17:29 | Discharge Summary ---
Discharge Summary Date of Service September 13, 2016. Discharge Summary Admission Date: September 12, 2016 at 11:47 Discharge Date: September 13, 2016 Discharge Disposition: Home Principal Diagnosis: Altered Mental Status Procedures: CT head: No acute intracranial abnormality. Carotid Doppler: 1. There is no sonographic evidence of hemodynamically significant stenosis in the right or left carotid arterial system. 2. Antegrade flow is shown in the vertebral arteries. CXR: No active disease in the chest. ECHO: * The left ventricle is normal in size. * There is mild concentric left ventricular hypertrophy. * The left ventricular wall motion is normal. * Left ventricular systolic function is normal. * Ejection Fraction = >70 %. * There is no significant valvular disease * There is no pericardial effusion. * Right ventricular systolic pressure is normal. Consultations: Psychiatry Admission Information HPI (per Admitting provider): Patient is a 46 Yr old female with PMH of DM II, Hypothyroidism, HLP, anxiety, depression and other problems presents from [facility] for evaluation of altered mental status. As per medical staff patient was thought to have acute drug overdose that occurred at unknown period. Patient was apparently found to be unresponsive and was not breathing at the drug treatment facility and she received Narcan en route to the ED. Patient reports she voluntarily got admitted at [facility] for Suboxone and Vicodin detox. She denies taking any excess prescription medications or drug use. She reports she is currently off Suboxone. CT head, CXR showed no acute process. Currently she is AAOX3, hemodynamically stable and states she experienced an episode of dizziness which is describes as room spinning associated with nausea which currently resolved. Currently reports being very tired and has generalized weakness and is very hungry. Also reports 2 day history of loose watery non bloody diarrhea, chills , nausea and pressure like sensation on micturition which is believes is secondary to UTI and was started on Bactrim yesterday at [facility]. Denies any history of chest pain, SOB, cough, abd pain, change in vision, fever, hematuria but states having a mild headache. Offers no other relevant history Physical Exam (per Admitting): General Appearance: WD/WN, no apparent distress Head: normocephalic, atraumatic Eyes: normal inspection, PERRL, EOMI, sclerae normal ENT: normal ENT inspection, hearing grossly normal Neck: supple, trachea midline Respiratory/Chest: chest non-tender, lungs clear, normal breath sounds, no respiratory distress, no accessory muscle use Cardiovascular: regular rate, rhythm, no edema, no murmur Abdomen/GI: normal bowel sounds, non tender, soft, + pertinent finding ( Bowel sounds present ) Back: normal inspection Extremities/Musculoskelatal: normal inspection, no pedal edema Neurologic/Psych: cafe attendant II-XII nml as tested, no motor/sensory deficits, alert , oriented x 3, + pertinent finding (Anxious) Skin: normal color, warm/dry Hospital Course Altered Mental Status: Unclear etiology DD: ?drug overdose or Withdrawal/Polypharmacy/Infection CT head/Carotid doppler/CXR: No acute process No focal deficits on exam Drug screen:Negative Hold sedative meds EEG/ECHO: report pending HYPOKALEMIA: Will replace and monitor Check Mag levels Diarrhea: Check stool studies IV Fluids ? UTI: Treated with Bactrim for 1 day at [facility] Continue Ceftriaxone Follow blood/Urine cultures DM II: hold oral diabetic meds Check A1c:pending ISS, Accu checks, Diabetic diet H/O drug abuse: Was on Suboxone which was discontinued at [facility] Patient doesn't want to be discharged back to [facility] Drug screen is negative security services specialist consulted for discharge planning Vistaril PRN Await for Psych input Hypothyroidism: Repeat TSH, Free T4:wnl Continue Synthroid, Cytomel HLP: Continue Pravastatin Anxiety/Depression: Hold all home meds for now Consulted Psychiatry Plan to resume home meds when appropriate Tobacco Use: Nicotine patch Motion Picture Narrator to quit smoking DVT px: Lovenox SQ Disposition: To be determined security services specialist consulted Patient wants to sign out AMA despite explaining the consequences and risks. Total time spent on discharge = This includes examination of the patient, discharge planning, medication reconciliation, and communication with other providers. Discharge Instructions Patient left AMA despite explaining the consequences and risks while work up being pending
[2016-09-14 07:28] LABS: ESTIMATED AVERAGE GLUCOSE 108 mg/dl; HA1C FLAG Normal (Normal)
--- NOTE | 2016-09-15 07:13 | ELECTROENCEPHALOGRAPH REPORT ---
REFERRING PHYSICIAN: Dr. Prater. CLINICAL DIAGNOSES: Near syncope. ELECTROENCEPHALOGRAM DIAGNOSIS: Essentially normal during wakefulness. DESCRIPTION OF TRACING: This EEG was done as a bedside recording and has a reasonable technical quality, although there are a number of movements and electrode artifacts. Once these cleared, the tracing is quite interpretable and reveals evidence for a background rhythm in the alpha range of up to 10 Hz of maximum frequency and 30-40 microvolts of maximum amplitude. This is maximum posterior head regions bilaterally symmetrical. Polymorphic mid frequency theta activity is seen over all head regions without clear focal or regional predominance. Anterior head region maximum bilaterally symmetrical low voltage fast activity in the beta range is present. At no time during the waking tracing, is there evidence for potentially epileptogenic activity in the form of polyspike or spike wave bursts, focal sharp waves or focal spikes. No activation procedures were utilized. INTERPRETATION: This EEG is essentially normal during wakefulness without evidence for focal or generalized encephalopathy and without evidence for potentially epileptogenic activity.
--- NOTE | 2016-09-15 17:20 | EEG Procedure Note ---
EEG Procedure Note Date of Service September 12, 2016. Start / End Times Start Time: 5:06 PM End Time: 5:26 PM Referring Physician Richi Prater History This is a 46-year-old female with a syncopal episode. EEG for further evaluation of possible seizure etiology. Home Medication List Scheduled Atomoxetine Hcl (Strattera), 60 MG PO QAM Bupropion Hcl (Wellbutrin Sr), 400 MG PO QAM Clonidine Hcl (Catapres), 0.1 MG PO BID Gabapentin (Neurontin), 300 MG PO TID Gabapentin (Neurontin), 600 MG PO HS Hydroxyzine Pamoate (Vistaril), 1-2 CAP PO BID Lamotrigine (Lamictal), 400 MG PO HS Levothyroxine Sodium (Synthroid), 50 MCG PO DAILY Liothyronine Sodium (Cytomel), 5 MCG PO DAILY Melatonin (Melatonin Maximum Strengt), 1 TAB PO HS Metformin Ext Rel (Glucophage Ext Rel), 2 TAB PO DAILY Multiple Vitamin (Multivitamin), 1 TAB PO DAILY Pravastatin Sodium (Pravachol), 20 MG PO DAILY Sulfamethoxazole-Trimethoprim (Bactrim Ds 800MG/160MG), 1 TAB PO BID Trazodone Hcl (Trazodone), 50 MG PO HS Scheduled PRN Acetaminophen (Tylenol 8 Hour Arthritis), 2 TABS PO Q4 PRN for Pain Alum & Mag Hydrox-Simethicone (Maalox Max Susp), 30 ML PO TID PRN for LOS Kpfbruv-Ueiltqpxxgfex-Qgzebldb (Excedrin Migraine), 2 TABS PO DAILY PRN for Headache Ibuprofen (Ibu-200), 1-3 TAB PO Q4H PRN for Pain Loperamide Hcl (Imodium), 4 MG PO UD PRN for ls Magnesium Hydroxide (Milk Of Magnesia), 30 ML PO DAILY PRN for LOS Naloxone HCl (Naloxone HCl), 0.4 MG IM UD PRN for SEDATION Naproxen Sodium (Naproxen Sodium), 1 TAB PO BID PRN for Pain Promethazine Hcl (Phenergan), 25 MG PO Q6H PRN for Nausea Description This is a 21 electrode EEG with a single channel dedicated to limited EKG. The electrodes were placed in accordance with the International 10-20 system. At the start of the recording the patient was in an awake state. Background was well organized and composed of symmetric mixed alpha and beta frequencies. There was a symmetric well-formed moderate amplitude 9-10 Hz posterior dominant rhythm that was reactive to eye opening and closure. Hyperventilation with good effort produced no abnormalities. Intermittent photic stimulation at various frequencies produced no abnormalities. There was no state changes or sleep transients. Interpretation This is a normal awake only routine EEG. There was no electrographic seizures or epileptiform discharges. Clinical Correlation A normal EEG does not rule out epilepsy if there is a strong clinical suspicion.
== END 2016-09-13 11:05 | disposition left against medical advice (07) ==
LOC: ENRESERVDT → ENRESERVTM → C.EDA 08:32 → C.2T 11:47 → EDBEDREQ 11:52 → UNDOADMOB 13:31 → C.2T 13:31 → INTOOBSV 13:31
PROVIDERS: ADMIT Internal Medicine; ATTEND Internal Medicine
DX: R40.4 Transient alteration of awareness (principal); F11.10 Opioid abuse, uncomplicated; E11.9 Type 2 diabetes mellitus without complications; E03.9 Hypothyroidism, unspecified; E87.6 Hypokalemia; E78.5 Hyperlipidemia, unspecified; R19.7 Diarrhea, unspecified; F17.200 Nicotine dependence, unspecified, uncomplicated; F32.9 Major depressive disorder, single episode, unspecified; F90.9 Attention-deficit hyperactivity disorder, unspecified type; Z82.49 Family history of ischemic heart disease and other diseases of the circulatory system; Z83.3 Family history of diabetes mellitus